=== PATIENT | female | born 1945 | race Caucasian/White ===

== ENCOUNTER 2022-02-10 21:52 | Emergency (ER) | payer MEDICARE, OTHER ==
[~2022-02-10] VITALS: Ht 170.2 cm; Wt 109.1 kg
[~2022-02-10 21:52] MED LIST: APIX5TAB3 PO; ATOR40TA72 PO; CARV6.253 PO; CLOP75TA34 PO; DILT180C66 PO; FURO40TA4 PO; LOSA25TA41 PO; METF500T3 PO; NITR0.4T48 SL; POTA-207 PO; PRED20TA PO; ZOLP6.2539 PO
--- NOTE | 2022-02-10 22:59 | NUR ---
INFORMED MD THAT PT. IS ON BLOOD THINNERS.
[2022-02-10] MEDS ORDERED: celeCOXIB 100mg capsule PO ONE (23:25)
[2022-02-10] MEDS ORDERED: cephalexin 500mg capsule PO ONE (23:25)
[2022-02-10] MEDS ORDERED: TETanus/Pertussis (Acell)/Diphther VAC/PF (Tdap-Adult) 0.5ml syringe IMVAC ONE (23:25)
[2022-02-11] MEDS ORDERED: CEPH-585 PO (00:44)
[2022-02-11 01:03] VITALS: BP 130/63
== END 2022-02-11 01:09 | disposition home or self-care (01) ==
LOC: ER 21:53
DX: S80.11XA Contusion of right lower leg, initial encounter (principal); S50.311A Abrasion of right elbow, initial encounter; E11.9 Type 2 diabetes mellitus without complications; I48.0 Paroxysmal atrial fibrillation; I25.10 Atherosclerotic heart disease of native coronary artery without angina pectoris; E78.00 Pure hypercholesterolemia, unspecified; I10 Essential (primary) hypertension; J43.9 Emphysema, unspecified; Z90.49 Acquired absence of other specified parts of digestive tract; Z95.5 Presence of coronary angioplasty implant and graft; Z88.2 Allergy status to sulfonamides; Z88.0 Allergy status to penicillin; Z88.5 Allergy status to narcotic agent; Z88.8 Allergy status to other drugs, medicaments and biological substances; Z79.2 Long term (current) use of antibiotics; Z79.899 Other long term (current) drug therapy; W18.09XA Striking against other object with subsequent fall, initial encounter; Z91.81 History of falling; Y93.89 Activity, other specified; Y92.89 Other specified places as the place of occurrence of the external cause; Y99.8 Other external cause status
CPT/HCPCS: 73080; 73564; 73610; 90471; 90715; 99284

== ENCOUNTER 2022-03-02 02:23 | Inpatient (IN) | payer MEDICARE, OTHER ==
[~2022-03-02] VITALS: Ht 170.2 cm; Wt 119.0 kg
[~2022-03-02 02:23] MED LIST changes: +CEPH-585 PO
[2022-03-02] MEDS ORDERED: albuterol 2.5 MG/3 ML nebule NEB ONE (02:35)
[2022-03-02 02:45] LABS: ABG BASE EXCESS 1.2 mmol/L (-2.0-2.0); ABG HCO3 27.1 mmol/L (22.0-26.0); ABG OXYGEN SATURATION 97.8 % (94-97); ABG PCO2 (T) 47.1 mmHg (32.0-45.0); ABG PO2 (T) 98.3 mmHg (75.0-100.0); ALLEN'S TEST POSITIVE; FCOHb 1.9 % (0.0-3.9); FLOW 6 L/min; FMetHb 0.1 % (0.0-1.5); FO2Hb 95.8 % (94-97); PATIENT TEMPERATURE 36.6; TOTAL HEMOGLOBIN 13.4 G/dl (12.0-16.0)
[2022-03-02 03:13] LABS: BASOPHILS # (AUTO) 0.2 X10'3 (0-0.2); BASOPHILS % (AUTO) 1.3 % (0-1); EOSINOPHILS # (AUTO) 0.4 X10'3 (0-0.9); EOSINOPHILS % (AUTO) 2.2 % (0-6); LYMPHOCYTES # (AUTO) 2.5 X10'3 (1.1-4.8); LYMPHOCYTES % (AUTO) 15.4 % (21-51); MEAN CORPUSCULAR HEMOGLOBIN 26.6 PG (27.0-31.0); MEAN CORPUSCULAR HGB CONC 30.9 g/dL (33.0-36.5); MEAN PLATELET VOLUME 8.6 FL (7.4-10.4); MONOCYTES # (AUTO) 1.2 X10'3 (0-0.9); MONOCYTES % (AUTO) 7.6 % (2-12); NEUTROPHILS % (AUTO) 73.5 % (42-75); PLATELET COUNT 404 X10'3 (140-440); RED BLOOD COUNT 4.53 X10'6 (4.20-5.60); RED CELL DISTRIBUTION WIDTH 16.2 % (11.5-14.5); WHITE BLOOD COUNT 16.3 X10'3 (4.5-11.0)
[2022-03-02 03:17] LABS: ALANINE AMINOTRANSFERASE 36 U/L (12-78); ALBUMIN 3.4 G/DL (3.4-5.0); ALBUMIN/GLOBULIN RATIO 0.9 (1.1-1.5); ALKALINE PHOSPHATASE 102 IU/L (46-116); ANION GAP 10 (8-16); ASPARTATE AMINO TRANSFERASE 29 U/L (10-37); BILIRUBIN,TOTAL 0.6 MG/DL (0.1-1.0); BLOOD UREA NITROGEN 14 MG/DL (7-18); BUN/CREATININE RATIO 24.1 (6.6-38.0); CALCIUM 9.6 MG/DL (8.5-10.1); CHLORIDE 104 MMOL/L (99-107); CREATININE 0.58 MG/DL (0.40-0.90); GLUCOSE 191 MG/DL (70-104); POTASSIUM 3.7 MMOL/L (3.5-5.1); SODIUM 144 MMOL/L (135-145); TOTAL CARBON DIOXIDE 29.6 MMOL/L (24-32); TOTAL PROTEIN 7.1 G/DL (6.4-8.2); eGFR > 90 ML/MIN
[2022-03-02] MEDS ORDERED: levoFLOXACIN-Levaquin 750MG/D5 150 ML IV STA (03:45)
[2022-03-02] MEDS ORDERED: dexamethasone sod phosphate 10mg/ml inj IV STA (03:49)
--- NOTE | 2022-03-02 06:30 | NUR ---
FIRST CONTACT WITH PT, FOUND HIGH FOWLERS IN BED WITH NC OUT OF NOSE. PT STATES THE O2 IS TOO HIGH AND MAKING HER NOSE RAW. 02 ON RA 94%, PT SOB WITH EXERTION. O2 DECREASED TO 2L, PLACED BACK IN PT NOSE. UPDATED PT ON POC AND ROOM STATUS. WOULD LIKE TO WAIT TO CHANGE INTO HOSPITAL GOWN UNTIL SHE GETS A ROOM.
--- NOTE | 2022-03-02 08:00 | NUR ---
BREAKFAST TRAY PROVIDED. [facility] PROVIDED D/T OLD ONE FALLING ON FLOOR.
[2022-03-02] MEDS ORDERED: magnesium 2GM in 50ml NS 50 ML IV PRN (08:10)
[2022-03-02] MEDS ORDERED: acetaminophen 325mg tablet PO PRN (08:10)
[2022-03-02] MEDS ORDERED: ondansetron 4mg rapidly disintigrating tab PO PRN (08:10)
[2022-03-02] MEDS ORDERED: magnesium 4gm in 100ml NS 100 ML IV PRN (08:10)
[2022-03-02] MEDS ORDERED: ondansetron/PF 4mg/2ml inj IV PRN (08:10)
[2022-03-02] MEDS ORDERED: PERFLUTREN PROTEIN-A MICROSPHR (Optison) 0.22 MG/ML 3ML VIAL IV ONE (08:10)
[2022-03-02] MEDS ORDERED: potassium CL 10mEq/100ml bag 100 ML IV PRN (08:10)
[2022-03-02] MEDS ORDERED: ipratropium/albuterol 3ml nebule NEB PRN ×2 (08:10)
[2022-03-02] MEDS ORDERED: magnesium Cl slow-release 64mg tablet PO PRN (08:10)
[2022-03-02] MEDS ORDERED: POTASSIUM BICARB 20meq eff tab 20 MEQ TABLET.EFF PO PRN ×2 (08:10)
--- NOTE | 2022-03-02 11:00 | NUR ---
UP TO BSC INDEPENDENTLY.
[2022-03-02 11:06] LABS: MAGNESIUM 1.7 MG/DL (1.5-2.4); POTASSIUM 3.7 MMOL/L (3.5-5.1)
--- NOTE | 2022-03-02 12:22 | NUR ---
LUNCH TRAY PROVIDED, TOLERATING WELL.
--- NOTE | 2022-03-02 12:32 | NUR ---
dr. rodrigez at bedside.
[2022-03-02] MEDS ORDERED: TRAM50TA2 PO (12:36)
--- NOTE | 2022-03-02 12:50 | NUR ---
paged dr. rodrigez regarding med rec.
--- NOTE | 2022-03-02 15:15 | NUR ---
paged dr. rodrigez regarding pt med rec. awaiting call back.
--- NOTE | 2022-03-02 17:21 | NUR ---
PAGED DR. BLAIR A THIRD TIME REGARDING PT MED REC. AWAITING CALL BACK.
[2022-03-02] MEDS: acetaminophen 325mg tablet PO PRN (18:22)
--- NOTE | 2022-03-02 18:28 | NUR ---
BEDSIDE REPORT TO SHWETA MULLER
[2022-03-02] MEDS: docusate sod 100mg capsule PO SCH (19:35)
[2022-03-02] MEDS: K and/or MAG REPLACEMENT MC SCH (19:35)
[2022-03-02] MEDS ORDERED: heparin, porcine 5000 units/ml vial SQ SCH (20:00)
[2022-03-02] MEDS ORDERED: traMADol 50MG tablet PO ONE (20:00)
[2022-03-02] MEDS ORDERED: glucagon, human recombinant 1mg kit SUBCUT PRN (20:20)
[2022-03-02] MEDS ORDERED: dextrose 50%-water 50ml dispensing syringe IV PRN ×2 (20:20)
[2022-03-02] MEDS ORDERED: MESSAGE TO PHARMACY PO ONE (20:20)
[2022-03-02] MEDS ORDERED: DEXTROSE 15 GM of carb/4 tabs (each vial/BOTTLE has 4 tablets) PO PRN ×2 (20:20)
[2022-03-02 20:36] LABS: HEMOGLOBIN A1C 7.4 % (4.5-6.2)
[2022-03-02] MEDS: carvedilol 6.25mg tablet PO SCH (20:45)
[2022-03-02] MEDS: diltiazem CD 180mg cap (once-daily) PO SCH (20:45)
[2022-03-02] MEDS: clopidogrel 75mg tablet PO SCH (20:45)
[2022-03-02] MEDS: losartan 25mg tablet PO SCH (20:52)
[2022-03-02 22:45] VITALS: BP 148/65
--- NOTE | 2022-03-02 22:51 | NUR ---
pt arrived on the unit from the ED. Report received from ED RN. Vital signs stable. Tele monitor on. 2 RN skin check performed.
[2022-03-02] MEDS: insulin glargine (Lantus) pen - multi-dose SQ SCH (23:17)
[2022-03-03] MEDS: zolpidem 5mg tablet PO PRN ×2 (01:41→22:54)
[2022-03-03 02:00] VITALS: BP 133/67
--- NOTE | 2022-03-03 06:22 | NUR ---
CHANGE OF SHIFT REPORT GIVEN TO SHWETA DE ANDA. ISSUES REPRIORITIZED. PATIENT STABLE. NO ACUTE COMPLAINTS
[2022-03-03 06:27] LABS: BASOPHILS # (AUTO) 0.1 X10'3 (0-0.2); BASOPHILS % (AUTO) 0.9 % (0-1); EOSINOPHILS % (AUTO) 0 % (0-6); HEMATOCRIT 37.4 % (35.0-45.0); HEMOGLOBIN 11.8 g/dl (12.0-16.0); LYMPHOCYTES # (AUTO) 1.5 X10'3 (1.1-4.8); LYMPHOCYTES % (AUTO) 11.8 % (21-51); MEAN CORPUSCULAR HEMOGLOBIN 26.5 PG (27.0-31.0); MEAN CORPUSCULAR HGB CONC 31.4 g/dL (33.0-36.5); MEAN CORPUSCULAR VOLUME 84.5 FL (78-98); MEAN PLATELET VOLUME 8.6 FL (7.4-10.4); MONOCYTES # (AUTO) 1.1 X10'3 (0-0.9); MONOCYTES % (AUTO) 8.3 % (2-12); NEUTROPHILS # (AUTO) 10.3 X10'3 (1.8-7.7); PLATELET COUNT 397 X10'3 (140-440); RED BLOOD COUNT 4.43 X10'6 (4.20-5.60); RED CELL DISTRIBUTION WIDTH 16.3 % (11.5-14.5)
[2022-03-03 06:28] LABS: ALBUMIN 3.2 G/DL (3.4-5.0); ANION GAP 8 (8-16); BLOOD UREA NITROGEN 12 MG/DL (7-18); BUN/CREATININE RATIO 26.7 (6.6-38.0); CHLORIDE 105 MMOL/L (99-107); CREATININE 0.45 MG/DL (0.40-0.90); GLUCOSE 173 MG/DL (70-104); MAGNESIUM 1.9 MG/DL (1.5-2.4); POTASSIUM 3.7 MMOL/L (3.5-5.1); SODIUM 143 MMOL/L (135-145); TOTAL CARBON DIOXIDE 30.3 MMOL/L (24-32); eGFR > 90 ML/MIN
[2022-03-03] MEDS: carvedilol 6.25mg tablet PO SCH ×2 (07:30→17:16)
[2022-03-03] MEDS: diltiazem CD 180mg cap (once-daily) PO SCH (08:00)
[2022-03-03] MEDS: K and/or MAG REPLACEMENT MC SCH ×2 (08:00→18:46)
[2022-03-03] MEDS: clopidogrel 75mg tablet PO SCH (08:00)
[2022-03-03] MEDS: atorvastatin 20mg tablet PO SCH (08:00)
[2022-03-03] MEDS: losartan 25mg tablet PO SCH (08:00)
[2022-03-03] MEDS: apixaban 5mg tablet PO SCH ×2 (08:00→19:51)
[2022-03-03] MEDS ORDERED: furosemide 40mg tablet PO SCH (08:00)
[2022-03-03] MEDS: docusate sod 100mg capsule PO SCH ×2 (08:00→19:52)
[2022-03-03] MEDS ORDERED: PERFLUTREN PROTEIN-A MICROSPHR (Optison) 0.22 MG/ML 3ML VIAL IV ONE (08:50)
--- NOTE | 2022-03-03 09:49 | NUR ---
Diabetes consult: Noted pt w/ hx of DM A1c 7.4. Written DM ed w/ RD contact info placed in pt chart Addendum: 03/03/22 at [address] Amended: Links added.
[2022-03-03] MEDS: insulin Lispro (HumaLOG) vial - multi-dose SQ SCH ×2 (14:41→18:49)
[2022-03-03] MEDS: levoFLOXACIN-Levaquin 500mg/D5 100 ML IV SCH (17:16)
[2022-03-03 18:00] VITALS: BP 132/54
[2022-03-03] MEDS: furosemide 40mg/4ml inj IV SCH (19:51)
[2022-03-03] MEDS: insulin glargine (Lantus) pen - multi-dose SQ SCH (20:01)
[2022-03-03 22:00] VITALS: BP 139/64
[2022-03-03] MEDS: acetaminophen 325mg tablet PO PRN (22:57)
[2022-03-04 02:00] VITALS: BP 115/58
[2022-03-04 06:00] VITALS: BP 114/61
--- NOTE | 2022-03-04 06:07 | NUR ---
Problems reprioritized. Patient report given, questions answered & plan of care reviewed with SHWETA Coon.
[2022-03-04 06:32] LABS: BASOPHILS # (AUTO) 0.1 X10'3 (0-0.2); BASOPHILS % (AUTO) 0.9 % (0-1); EOSINOPHILS # (AUTO) 0.1 X10'3 (0-0.9); EOSINOPHILS % (AUTO) 1.3 % (0-6); HEMATOCRIT 39.9 % (35.0-45.0); HEMOGLOBIN 12.8 g/dl (12.0-16.0); LYMPHOCYTES # (AUTO) 3.1 X10'3 (1.1-4.8); LYMPHOCYTES % (AUTO) 26.8 % (21-51); MEAN CORPUSCULAR HEMOGLOBIN 27.3 PG (27.0-31.0); MEAN CORPUSCULAR VOLUME 85.5 FL (78-98); MEAN PLATELET VOLUME 8.5 FL (7.4-10.4); MONOCYTES # (AUTO) 1.2 X10'3 (0-0.9); MONOCYTES % (AUTO) 10.3 % (2-12); NEUTROPHILS # (AUTO) 6.9 X10'3 (1.8-7.7); NEUTROPHILS % (AUTO) 60.7 % (42-75); PLATELET COUNT 406 X10'3 (140-440); RED BLOOD COUNT 4.67 X10'6 (4.20-5.60); RED CELL DISTRIBUTION WIDTH 16.4 % (11.5-14.5); WHITE BLOOD COUNT 11.4 X10'3 (4.5-11.0)
[2022-03-04 07:02] LABS: ALBUMIN 3.5 G/DL (3.4-5.0); ANION GAP 9 (8-16); BLOOD UREA NITROGEN 18 MG/DL (7-18); BUN/CREATININE RATIO 28.1 (6.6-38.0); CALCIUM 9.2 MG/DL (8.5-10.1); CHLORIDE 104 MMOL/L (99-107); CREATININE 0.64 MG/DL (0.40-0.90); GLUCOSE 135 MG/DL (70-104); POTASSIUM 3.4 MMOL/L (3.5-5.1); SODIUM 145 MMOL/L (135-145); TOTAL CARBON DIOXIDE 31.9 MMOL/L (24-32); eGFR 90 ML/MIN
[2022-03-04] MEDS: atorvastatin 20mg tablet PO SCH (07:37)
[2022-03-04] MEDS: carvedilol 6.25mg tablet PO SCH (07:37)
[2022-03-04 07:38] VITALS: BP_SYST 114
[2022-03-04] MEDS: diltiazem CD 180mg cap (once-daily) PO SCH (07:38)
[2022-03-04] MEDS: clopidogrel 75mg tablet PO SCH (07:38)
[2022-03-04] MEDS: losartan 25mg tablet PO SCH (07:38)
[2022-03-04] MEDS: apixaban 5mg tablet PO SCH (07:38)
[2022-03-04] MEDS: furosemide 40mg/4ml inj IV SCH (07:38)
[2022-03-04] MEDS: docusate sod 100mg capsule PO SCH (07:38)
[2022-03-04] MEDS: K and/or MAG REPLACEMENT MC SCH (08:00)
[2022-03-04] MEDS ORDERED: LEVO500T90 PO (08:57)
[2022-03-04] MEDS ORDERED: IPRA3AMP9 NEB (08:57)
[2022-03-04] MEDS ORDERED: pneumococcal 23-VAL P-sac vacc 25 mcg/0.5ml vial IMVAC ONE (10:00)
[2022-03-04] MEDS: levoFLOXACIN-Levaquin 500mg/D5 100 ML IV SCH (10:20)
--- NOTE | 2022-03-06 14:44 | NUR ---
Case Management DC follow up : Spoke with patient via telephone .S/P:Patient Reports: Denies chest pain,sob,nausea.Verbalizes she is managing her 1.5 liter fluid restrictions ; swelling in her leg is much better, denies fever, chills.Wound clinic consult was not there for appointment;however, rescheduled appointment for 03/12/22 at 1015.Verbalized has scheduled follow up appointment with PCP.Verbalizes compliance with aftercare.Verbalizes understanding of s/s that warrant 911/ER visit for further evaluation.Verbalized understanding of new Rx: why prescribed;continues/resumes current Rx as ordered.Verbalizes everyone was great:Nursing, Resp therapist,everyone ,except the physician assigned to her care . Starting with first encounter with Physician in ER telling patient she did not have pneumonia, because she was not even wearing an oxygen cannula,then asked patient a question ,before Patient could answer,Physician looked at her watch and stated she had a meeting, but she would be right back.Patient verbalized she did not see the physician until the next day; this example of interaction continued throughout her stay in the hospital. Addendum: 03/06/22 at 1621 by Mae West RN Needs met,questions/concerns addressed with nurse at DC.No further questions/concerns regarding recent hospital stay and or DC status.
== END 2022-03-04 12:19 | disposition home or self-care (01) | DRG 871 ==
LOC: ER 02:23 → ED HOLD 08:12 → PCU 3S 22:30
PROVIDERS: ADMIT Internal Medicine; ATTEND Internal Medicine
PROC: 3E0234Z Introduction of Serum, Toxoid and Vaccine into Muscle, Percutaneous Approach (ICD-10-PCS; principal; 2022-03-04)
DX: A41.9 Sepsis, unspecified organism (principal); I50.23 Acute on chronic systolic (congestive) heart failure; J96.10 Chronic respiratory failure, unspecified whether with hypoxia or hypercapnia; L03.115 Cellulitis of right lower limb; I48.20 Chronic atrial fibrillation, unspecified; I11.0 Hypertensive heart disease with heart failure; E78.5 Hyperlipidemia, unspecified; E11.9 Type 2 diabetes mellitus without complications; E78.00 Pure hypercholesterolemia, unspecified; G89.29 Other chronic pain; Z96.653 Presence of artificial knee joint, bilateral; S80.811A Abrasion, right lower leg, initial encounter; W18.39XA Other fall on same level, initial encounter; M54.9 Dorsalgia, unspecified; I25.10 Atherosclerotic heart disease of native coronary artery without angina pectoris; M54.50 Low back pain, unspecified; J43.9 Emphysema, unspecified; I25.2 Old myocardial infarction; Z79.02 Long term (current) use of antithrombotics/antiplatelets; Z79.84 Long term (current) use of oral hypoglycemic drugs; Z87.891 Personal history of nicotine dependence; Z23 Encounter for immunization; Z88.0 Allergy status to penicillin; Z88.2 Allergy status to sulfonamides; Z88.5 Allergy status to narcotic agent; Y93.89 Activity, other specified; Y92.59 Other trade areas as the place of occurrence of the external cause; Y99.8 Other external cause status; Z79.899 Other long term (current) drug therapy
CPT/HCPCS: 36415; 36600; 71045; 73590; 80048; 80053; 82803; 82948; 83036; 83605; 83735; 83880; 84132; 84484; 85018; 85025; 87040; 87081; 90732; 93306; 93971; 94640; 94760; 97116; 97161; 97530; 99285; G0378; J1100; J1644; J1815; J1940; J1956

== ENCOUNTER 2022-11-15 21:43 | Emergency (ER) | payer MEDICARE, OTHER ==
[~2022-11-15] VITALS: Ht 170.2 cm; Wt 97.0 kg
[~2022-11-15 21:43] MED LIST changes: -CEPH-585 PO; -DILT180C66 PO; +DILT180C89 PO; +FLUT1BLS4 INH; -LOSA25TA41 PO; -METF500T3 PO; -NITR0.4T48 SL; +NITR0.4T51 SL; +PANT40TA54 PO; -PRED20TA PO; +TRAM50TA2 PO
[2022-11-15 22:02] VITALS: BP 135/65
[2022-11-15] MEDS ORDERED: DOXYCYCLINE 100MG CAPSULE PO STA (23:21)
[2022-11-15] MEDS ORDERED: DOXY100C76 PO (23:24)
[2022-11-15] MEDS ORDERED: CEPH-585 PO (23:24)
[2022-11-15] MEDS ORDERED: HYDR-3965 PO (23:24)
[2022-11-15] MEDS ORDERED: cephalexin 250mg capsule PO ONE (23:25)
[2022-11-15] MEDS ORDERED: HYDROcodone/acetaminophen 10/325mg tab PO ONE (23:30)
== END 2022-11-15 23:54 | disposition home or self-care (01) ==
LOC: ER 21:43
DX: L03.011 Cellulitis of right finger (principal); I11.9 Hypertensive heart disease without heart failure; J44.9 Chronic obstructive pulmonary disease, unspecified; J43.9 Emphysema, unspecified; E11.9 Type 2 diabetes mellitus without complications; Z88.0 Allergy status to penicillin; Z88.2 Allergy status to sulfonamides; Z79.899 Other long term (current) drug therapy; Z88.5 Allergy status to narcotic agent; Z88.8 Allergy status to other drugs, medicaments and biological substances
CPT/HCPCS: 99284

== ENCOUNTER 2024-01-14 00:55 | Emergency (ER) | payer MEDICARE, OTHER ==
[~2024-01-14] VITALS: Ht 170.2 cm; Wt 104.5 kg
[2024-01-14 01:21] VITALS: BP 119/58; PULSE 86; RESP 17; TEMP 98; O2SAT 92
[2024-01-14] MEDS ORDERED: HYDR-3965 PO (02:41)
== END 2024-01-14 02:49 | disposition home or self-care (01) ==
LOC: ER 00:56
DX: S80.11XA Contusion of right lower leg, initial encounter (principal); I25.10 Atherosclerotic heart disease of native coronary artery without angina pectoris; E78.00 Pure hypercholesterolemia, unspecified; I10 Essential (primary) hypertension; I25.2 Old myocardial infarction; J44.9 Chronic obstructive pulmonary disease, unspecified; E11.9 Type 2 diabetes mellitus without complications; M19.90 Unspecified osteoarthritis, unspecified site; Z90.49 Acquired absence of other specified parts of digestive tract; Z88.0 Allergy status to penicillin; Z88.2 Allergy status to sulfonamides; Z88.8 Allergy status to other drugs, medicaments and biological substances; X58.XXXA Exposure to other specified factors, initial encounter; Y93.89 Activity, other specified; Y92.89 Other specified places as the place of occurrence of the external cause; Y99.8 Other external cause status
CPT/HCPCS: 73590; 99283

== ENCOUNTER 2025-04-25 16:34 | Inpatient (IN) | payer MEDICARE, OTHER ==
[~2025-04-25] VITALS: Ht 170.2 cm; Wt 104.5 kg
[~2025-04-25 16:34] MED LIST changes: +ASPI-1071 PO; -CLOP75TA34 PO; -DILT180C89 PO; +DULO60CA61 PO; +FEXO-25 PO; +FLUT1BLS16 INH; -FLUT1BLS4 INH; +FURO-150 PO; -FURO40TA4 PO; +ICOS1CAP PO; +LEVO-65 PO; +LIRA0.6P SUBCUT; +MAGN250T29 PO; +MELA10TA2 PO; -NITR0.4T51 SL; +OSC500T PO; +PANT-47 PO; -PANT40TA54 PO; +SACU1TAB PO; -TRAM50TA2 PO; -ZOLP6.2539 PO; +ZOLP6.2547 PO
--- NOTE | 2025-04-25 17:34 | RADIOLOGY REPORT ---
Indication: KNEE PAIN LEFT Technique: DI KNEE, COMP 4 VW MINKNEE CMPT Comparison: None FINDINGS/IMPRESSION: No radiographic evidence for acute fracture or dislocation. Left knee arthroplasty in anatomic align ment. Small to moderate suprapatellar effusion. Enthesopathy at quadriceps insertion upon the lopez la. Osteopenia.
--- NOTE | 2025-04-25 19:47 | Physician Documentation ---
History of Present Illness ~ Chief Complaint: Mechanical Fall Stated Complaint: LT KNEE PAIN Time Seen by MD: 17:53 Primary Medical Doctor: Dr. Caro, PCP. Dr. Catalan, tawer HPI Patient is seen today with complaints of pain of her left knee after she took a fall from ground level and landed on her left knee Thursday which was about four or five days ago. 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 Patient admits to total knee arthroplasty on the left side back in 1993 and has no complications since. Patient denies any fevers or chills but states the pain in her left knee has been constant and significant and she has no other concern or complaint at this time. Tetanus within 5 Years?: Yes Medication Reconciliation Allergies: Coded Allergies: Penicillins (Unverified Allergy, Intermediate, HIVES, 04/25/25) Sulfa (Sulfonamide Antibiotics) (Unverified Allergy, Intermediate, HIVES, 04/25/25) droperidol (Unverified Allergy, Intermediate, MOOD CHANGE, 04/25/25) morphine (Verified Allergy, Intermediate, HIVES, 04/25/25) NSAIDS (Non-Steroidal Anti-Inflamma (Verified Allergy, Unknown, 04/25/25) Uncoded Allergies: NSAID (Allergy, Mild, BLEEDING- PT ON BLOOD THINNERS, 04/19/24) Scheduled Apixaban (Eliquis), 1 TAB PO Q12H, (Reported) Aspirin (Ecotrin*), 81 TAB PO DAILY, (Reported) Atorvastatin Calcium (Atorvastatin Calcium), 1 TAB PO DAILY, (Reported) Calcium Carbonate* (Oscal*), 2 TAB PO DAILY, (Reported) Carvedilol (Carvedilol), 1 TAB PO BID, (Reported) Duloxetine HCl (Cymbalta), 1 CAP PO DAILY, (Reported) Fexofenadine Hcl (Nakia Allergy), 3 TAB PO DAILY, (Reported) Fluticasone/Umeclidin/Vilanter (Trelegy Ellipta 200-62.5-25), 1 PUFFS INH DAILY, (Reported) Icosapent Ethyl (Vascepa), 2 CAP PO Q12H, (Reported) Liraglutide (Victoza), 1.2 MG SUBCUT DAILY, (Reported) Magnesium Oxide (Magnesium), 2 TAB PO DAILY, (Reported) Melatonin (Melatonin), 1 TAB PO HS, (Reported) Pantoprazole Sodium (PROTONIX tablet), 1 TAB PO DAILY, (Reported) Sacubitril/Valsartan (Entresto 24 mg-26 mg Tablet), 2 TAB PO DAILY, (Reported) Spironolactone (Spironolactone), 2.5 TAB PO DAILY, (Reported) Scheduled PRN Furosemide* (Lasix*), 2 TAB PO BID PRN for SOB or wheezing, (Reported) Tramadol HCl (Tramadol HCl), 1 TAB PO Q12H PRN PRN for pain, (Reported) Zolpidem Tartrate (Zolpidem Tartrate), 1 TAB PO HSPRN PRN for sleep, (Reported) Discontinued Medications Levofloxacin (Levofloxacin), 500 MG PO Q24H@11 Discontinued Reason: patient no longer taking Potassium Chloride* (K-Dur*), 1 TAB PO DAILY, (Reported) Discontinued Reason: patient no longer taking Tramadol HCl (Tramadol HCl), 1 TAB PO Q12H PRN PRN for pain, (Reported) Discontinued Reason: patient no longer taking Zolpidem Tartrate (Zolpidem Tartrate), 1 TAB PO HS PRN for insomnia, (Reported) Discontinued Reason: patient no longer taking Past Medical History Past Medical History: Atrial Fibrillation, Coronary Artery Disease, High Cholesterol, Hypertension, Myocardial Infarction, COPD, Emphysema, Pneumonia, GI Bleed, Pancreatitis, Diabetes, Arthritis Past Surgical History: angioplasty, cholecystectomy, orthopedic surgeries Patient History: FH: CHF (congestive heart failure) Reviewed and is not pertinent, Name: FATHER, , Age: 77 FH: dementia MOTHER, , Age: 98 FH: lymphoma MOTHER, , Age: 98 Alcohol Use: None Drug Use: none Lives with: Spouse Lives In: Home Occupation: retired Physical Exam Vital Signs: Temperature: 98.1, Source: Temporal, Heart Rate: 84, Respiratory Rate: 18, BP: 123/60, Pulse Oximetry: 97, Weight: 104.550 Physical Exam General: Awake and Alert, no acute distress. HEENT: Conjunctiva pink, Sclera clear, Mucus Membranes moist. Neck: Supple without masses and tenderness. Resp: Unlabored. Lungs clear to auscultation bilaterally. Heart: Regular Rate and rhythm, normal S1 and S2 without murmur, rub or gallop. Musculoskeletal: Patient on exam has erythema and swelling and warmth of the left knee. Patient has postsurgical changes with scar of anterior knee that is well healed from previous total knee arthroplasty left side. Patient is neurovascularly intact distally. Patient is decreased range of motion of the left knee due to pain and swelling. Extremities: No cyanosis,clubbing or edema. Skin: Warm and Dry. Progress Results/Orders Results/Orders Orders - SHANITA PAN Saline Lock (04/25/25 ) Page Hospitalist (04/25/25 21:05) Fill Out Med Reconciliation (04/25/25 21:05) Completed Orders - SHANITA PAN PAC Hydrocodone/Apap 10/325 (Herman 10/325mg (04/25/25 19:29) Clindamycin Capsule (Cleocin Capsule) (04/25/25 19:29) Cbc/Diff (04/25/25 19:53) BMP (04/25/25 19:53) C-Reactive Protein (04/25/25 19:53) ESR (04/25/25 19:53) Hgb A1c (04/25/25 20:06) PBNP (04/25/25 20:06) Medications Received in ER Medications (Trade) Dose Ordered Sig/Cate Route PRN Reason Start Time Stop Time Status Last Admin Dose Admin (Herman 10/325mg tab) 1 tab ONCE STAT PO 04/25/25 19:29 04/25/25 19:48 DC 04/25/25 19:52 1 TAB Sodium Chloride 1,000 ml @ 100 mls/hr Q10H IV 04/25/25 22:15 04/25/25 23:20 100 MLS/HR Ceftriaxone Sodium 50 ml @ 100 mls/hr DAILY IV 04/25/25 22:15 04/25/25 23:21 100 MLS/HR Vital Signs 04/25/25 16:57 Temp 98.1 Pulse 84 Resp 18 B/P (MAP) 123/60 Pulse Ox 97 Laboratory Tests Test 04/25/25 20:06 White Blood Count 11.9 H Red Blood Count 4.56 Hemoglobin 12.4 Hematocrit 38.9 Mean Corpuscular Volume 85.3 Mean Corpuscular Hemoglobin 27.2 Mean Corpuscular Hemoglobin Concent 31.8 L Red Cell Distribution Width 16.1 H Platelet Count 421 Mean Platelet Volume 7.7 Neutrophils (%) (Auto) 62.8 Lymphocytes (%) (Auto) 23.8 Monocytes (%) (Auto) 9.1 Eosinophils (%) (Auto) 3.1 Basophils (%) (Auto) 1.2 H Neutrophils # (Auto) 7.4 Lymphocytes # (Auto) 2.8 Monocytes # (Auto) 1.1 H Eosinophils # (Auto) 0.4 Basophils # (Auto) 0.1 CBC Comment Erythrocyte Sedimentation Rate 29 Prothrombin Time 10.3 INR International Normalized Ratio 1.0 Activated Partial Thromboplast Time 27 Coagulation Comments Sodium Level 136 Potassium Level 4.2 Chloride Level 101 Carbon Dioxide Level 27.5 Anion Gap 8 Blood Urea Nitrogen 13 Creatinine 0.49 Estimated GFR/1.73 m2 > 90 BUN/Creatinine Ratio 26.5 H Glucose Level 105 H Hemoglobin A1c 6.3 H Calcium Level 8.8 C-Reactive Protein 0.95 H Pro-B-Type Natriuretic Peptide 314 Albumin 3.4 Chemistry Comments EKG/XRAY/CT/US/VASC/MRI Bone/Soft Tissue X-Ray (Ext.) : Additional Comment X-ray of the left knee interpreted by myself today shows no sign of acute fracture, orthopedic hardware in place, joint in anatomic alignment. DIAGNOSTIC RADIOLOGY Patient: PAUL YORK Medical Record: [id number] [facility] : 1945, Age: 79 Sex: Female Location: ER Patient Status: REG ER Service Date/Time: 04/25/251713 Ordering Physician: MARISOL THOMAS HAND BRUSH FILLER Exam: KNEE, COMP 4 VW MIN Indication: KNEE PAIN LEFT Technique: DI KNEE, COMP 4 VW MINKNEE CMPT Comparison: None FINDINGS/IMPRESSION: No radiographic evidence for acute fracture or dislocation. Left knee arthroplasty in anatomic alignment. Small to moderate suprapatellar effusion. Enthesopathy at quadriceps insertion upon the patella. Osteopenia. Electronically Signed by:ENRICO CARLSON MD Date & Time: 04/25/251732 Dictated by: ENRICO CARLSON MD Dictation date and time: 04/25/251732 Primary Care Provider: NO PRIMARY CARE PROVIDER cc: MARISOL THOMAS HAND BRUSH FILLER ~ Medical Decision Making Findings Patient is seen today with complaints of pain of her left knee after she took a fall from ground level and landed on her left knee Thursday which was about four or five days ago. 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 Patient admits to total knee arthroplasty on the left side back in 1993 and has no complications since. Patient denies any fevers or chills but states the pain in her left knee has been constant and significant and she has no other concern or complaint at this time. I did consult with Dr. Aleman the orthopedic surgeon on-call who agreed to see patient tomorrow. Patient will be admitted to the hospitalist and hospitalist consulted and started on antibiotics IV. Arthrocentesis of the left knee was attempted with very minimal blood being drawn out. And no purulent drainage. Patient was given a Herman 10 in the ED tonight. Departure Disposition: ADMITTED INPATIENT Admitted to Inpatient Unit: to hospitalist Admission Level of Care: Med/Surg Impression: Primary Impression: Septic arthritis of knee, left Qualified Codes: M00.9 - Pyogenic arthritis, unspecified Condition: Stable Additional Instructions: I did consult with Dr. Aleman the orthopedic surgeon on-call who agreed to see patient tomorrow. Patient will be admitted to the hospitalist and hospitalist consulted and started on antibiotics IV. Arthrocentesis of the left knee was attempted with very minimal blood being drawn out. And no purulent drainage. Patient was given a Herman 10 in the ED tonight. Referrals: NO PRIMARY CARE PROVIDER (PCP) Signature Scribe Signature: No scribe Attestation: No scribe SHANITA PAN PAC Apr 25, 2025 19:47
[2025-04-25] MEDS: HYDROcodone/acetaminophen 10/325mg tab PO STA (19:52)
[2025-04-25 20:15] LABS: MEAN PLATELET VOLUME 7.7 FL (7.4-10.4); RED CELL DISTRIBUTION WIDTH 16.1 % (11.5-14.5)
[2025-04-25 20:30] LABS: CREATININE 0.49 MG/DL (0.40-0.90); TOTAL CARBON DIOXIDE 27.5 MMOL/L (24-32); eCRCL 92 ML/MIN; eGFR > 90 ML/MIN
[2025-04-25] MEDS ORDERED: magnesium Cl slow-release 64mg tablet PO PRN (22:15)
[2025-04-25] MEDS ORDERED: magnesium sulf-water 4G/100mL 100 ML IV PRN (22:15)
[2025-04-25] MEDS ORDERED: mag hydrox/Alum hydrox/simeth 30ml oral suspension PO PRN (22:15)
[2025-04-25] MEDS ORDERED: potassium Cl 20 mEq SR tablet PO PRN ×2 (22:15)
[2025-04-25] MEDS ORDERED: HYDROcodone/acetaminophen 10/325mg tab PO PRN (22:15)
[2025-04-25] MEDS ORDERED: potassium Cl 40MEQ/1/2NS 520ml 520 ML IV PRN (22:15)
[2025-04-25] MEDS ORDERED: HYDROmorphone inj. 0.5 MG/0.5 ML DISP.SYRIN IV PRN (22:15)
[2025-04-25] MEDS ORDERED: magnesium sulf-water 2g/50mL 50 ML IV PRN (22:15)
[2025-04-25] MEDS ORDERED: HYDROmorphone/PF 0.2 MG/ML SYRINGE IV PRN (22:15)
[2025-04-25 22:42] LABS: APTT 27 SECONDS (22-32); INR 1.0 INR
[2025-04-25 22:50] LABS: PRO BRAIN NATRIURETIC PEPTIDE 314 PG/ML (0-450)
[2025-04-25] MEDS: normal saline 1000ml 1,000 ML IV SCH (23:20)
[2025-04-25] MEDS: CefTRIAXone/D5W-Rocephin 1gm 50 ML IV SCH (23:21)
[2025-04-26] VITALS (11 sets, daily range): BP systolic 112–166; BP diastolic 42–74; PULSE 67–94; RESP 13–18; TEMP 97.4–97.8; O2SAT 92–97
[2025-04-26] MEDS ORDERED: ZOLP6.2547 PO
[2025-04-26] MEDS ORDERED: SPIR100T5 PO
[2025-04-26] MEDS ORDERED: TRAM50TA2 PO (00:01)
--- NOTE | 2025-04-26 02:13 | HISTORY AND PHYSICAL-Residence ---
History & Physical Providers to CC Resident Creating Document: OMKAR CHRIS, RES ~ History of Present Illness Primary Medical Doctor: Dr. Caro, PCP. Dr. Catalan, composing room supervisor Reason for Admit\Complaint: Left knee pain, redness History of Present Illness This is a 79-year-old female with a history of atrial fibrillation, CAD, hypertension, hyperlipidemia, COPD, emphysema, diabetes, arthritis presents to the ER with a chief complaint of pain and tenderness in the left knee. Patient endorses that she had a ground level fall landed on her left knee on Thursday about four days ago. She is on a blood thinner for her AFib and has propensity to bleed easily. Patient states that she had very significant swelling that improved progressively. Also the swelling improved she had warmth, tenderness to touch and redness around the left knee. Patient also has pain while she bends her knee. 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 She denies any fever, chills, difficulty walking or gait abnormalities. Patient underwent total knee arthroplasty of left knee 30 years ago. Allergies: Coded Allergies: Penicillins (Unverified Allergy, Intermediate, HIVES, 04/25/25) Sulfa (Sulfonamide Antibiotics) (Unverified Allergy, Intermediate, HIVES, 04/25/25) droperidol (Unverified Allergy, Intermediate, MOOD CHANGE, 04/25/25) morphine (Verified Allergy, Intermediate, HIVES, 04/25/25) NSAIDS (Non-Steroidal Anti-Inflamma (Verified Allergy, Unknown, 04/25/25) Uncoded Allergies: NSAID (Allergy, Mild, BLEEDING- PT ON BLOOD THINNERS, 04/19/24) Home Medications Home Medications Active Reported Tramadol HCl 50 Mg Tablet 1 Tab PO Q12H PRN PRN 30 Days Spironolactone 100 Mg Tablet 2.5 Tab PO DAILY 30 Days Zolpidem Tartrate 6.25 Mg Tab.mphase 1 Tab PO HSPRN PRN 30 Days Lasix* (Furosemide) 20 Mg Tablet 2 Tab PO BID PRN 30 Days PROTONIX tablet (Pantoprazole Sodium) 40 Mg Tablet.dr 1 Tab PO DAILY 30 Days Cymbalta (Duloxetine HCl) 60 Mg Capsule. 1 Cap PO DAILY 30 Days Ecotrin* (Aspirin) 81 Mg Tablet. 81 Tab PO DAILY 30 Days Nakia Allergy (Fexofenadine Hcl) 60 Mg Tablet 3 Tab PO DAILY 30 Days Vascepa (Icosapent Ethyl) 1 Gram Capsule 2 Cap PO Q12H 30 Days Magnesium (Magnesium Oxide) 250 Mg Tablet 2 Tab PO DAILY 30 Days Entresto 24 mg-26 mg Tablet (Sacubitril/Valsartan) 24 Mg-26 Mg Tablet 2 Tab PO DAILY 30 Days Oscal* (Calcium Carbonate) 500 Mg Tablet 2 Tab PO DAILY Trelegy Ellipta 200-62.5-25 (Fluticasone/Umeclidin/Vilanter) 200-62.5 Blst.w.dev 1 Puffs INH DAILY 30 Days Victoza (Liraglutide) 0.6 Mg/0.1 Ml (18 Mg/3 Ml) Pen.injctr 1.2 Mg SUBCUT DAILY 30 Days Melatonin 10 Mg Tablet 1 Tab PO HS 30 Days Eliquis (Apixaban) 5 Mg Tablet 1 Tab PO Q12H 30 Days Atorvastatin Calcium 40 Mg Tablet 1 Tab PO DAILY Carvedilol 6.25 Mg Tablet 1 Tab PO BID Past Medical History Past Medical History Atrial Fibrillation, Coronary Artery Disease, High Cholesterol, Hypertension, Myocardial Infarction, COPD, Emphysema, Pneumonia, GI Bleed, Pancreatitis, Diabetes, Arthritis Past Surgical History Surgical History Comment angioplasty, cholecystectomy, orthopedic surgeries Family History Family History: FH: CHF (congestive heart failure) Reviewed and is not pertinent, Name: FATHER, , Age: 77 FH: dementia MOTHER, , Age: 98 FH: lymphoma MOTHER, , Age: 98 Past Social History Social History Comment Smoked about 10-15 cigarettes per day but quit two years ago. Drinks alcohol occasionally, denies any drug use Alcohol Use: None Drug Use: None Lives with: Spouse Lives In: Home Occupation: retired ROS ROS Reviewed in full and negative except for the pertinent positives in HPI Exam Vitals: Vital Signs Date Time Temp Pulse Resp B/P (MAP) Pulse Ox O2 Delivery O2 Flow Rate FiO2 04/25/25 23:46 16 04/25/25 23:29 70 92 0 04/25/25 16:57 98.1 General: General: Awake and Alert, no acute distress. HEENT: Conjunctiva pink, Sclera clear, Mucus Membranes moist. Neck: Supple without masses and tenderness. Resp: Unlabored. Lungs clear to auscultation bilaterally. Heart: Regular Rate and rhythm, normal S1 and S2 without murmur, rub or gallop. Musculoskeletal: Patient on exam has erythema and swelling and warmth of the left knee, significant asymmetric swelling and bruising around the knee. Patient has postsurgical changes with scar of anterior knee that is well healed from previous total knee arthroplasty left side. Patient is neurovascularly intact distally. Patient is decreased range of motion of the left knee due to pain and swelling. Extremities: No cyanosis,clubbing or edema. Skin: Warm and Dry. Diagnostic Data Last Recorded Lab Results: 04/25/25200504/25/252005 Diagnostic Data: Laboratory Tests Test 04/25/25 20:06 Prothrombin Time 10.3 SECONDS (9.0-12.0) INR International Normalized Ratio 1.0 INR Activated Partial Thromboplast Time 27 SECONDS (22-32) Coagulation Comments Advance Care Planning Advanced Care plannin - 30 Minutes (I spent a total of 17 minutes on reviewing various resuscitative measures/ ACP with the patient at the time of admission. The patient has decided on a full code status) Additional Plan Acute knee pain and tenderness secondary to trauma Small to Moderate Bloody prepatellar effusion Rule out septic arthritis Knee x-ray shows No radiographic evidence for acute fracture or dislocation. Left knee arthroplasty in anatomic alignment. Small to moderate suprapatellar effusion. Enthesopathy at quadriceps insertion upon the [place] [address], ESR 29, lactic acid 2.8, CRP 0.95. Started on IV vancomycin and Rocephin. Dr. Aleman was consulted who recommended inpatient admission, arthrocentesis and culture of synovial fluid. Arthrocentesis was done which got very minimal blood with no purulent drainage. Fluid was sent for analysis. Continue hydration with IV fluids at 100 mL/hour History of atrial fibrillation Continue home medication carvedilol 6.25 mg b.i.d. hold Eliquis for now given bloody effusion in the knee. History of CHF s/p stent in 2020 History of CAD History of ROBERT Continue home medication aspirin 81 mg, atorvastatin 40 mg, hold Lasix for now. Continue GDMT with Entresto, spironolactone, carvedilol She follows Dr. Cataaln outpatient. CPAP at night Code Status: Full code DVT Prophylaxis: Heparin Analgesia/Sedation: [place], morphine p.r.n. Lines/Tubes: PIV Gi Prophylaxis: None Nutrition: Regular diet PT: Yes Prognosis: Guarded Disposition: Admit to ortho floor. Pending orthopedic consultation and cultures Omkra Christine MD Internal Medicine Resident PGY-2 Patient evaluated using HIPPA compliant AV device Discussed with resident as outlined above Ashia Matt MD Date of Service: Apr 26, 2025 Billing Provider: ASHIA MATT MD,OMKAR CHRISTINE, RES Apr 26, 2025 02:13 ASHIA MATT MD Apr 26, 2025 03:32
[2025-04-26] MEDS ORDERED: FLUC200T93 PO (02:34)
[2025-04-26] MEDS: HYDROcodone/acetaminophen 5mg/325mg tablet PO PRN (02:37)
[2025-04-26 03:11] LABS: MEAN PLATELET VOLUME 8.2 FL (7.4-10.4); RED CELL DISTRIBUTION WIDTH 16.3 % (11.5-14.5)
[2025-04-26 03:23] LABS: CREATININE 0.57 MG/DL (0.40-0.90); TOTAL CARBON DIOXIDE 26.9 MMOL/L (24-32); eCRCL 79 ML/MIN; eGFR > 90 ML/MIN
[2025-04-26 03:24] LABS: CHOL/HDL RATIO 3.0 (0.00-4.99); LDL CHOLESTEROL 71 MG/DL (50-100)
[2025-04-26] MEDS: VANCOMYCIN 2GM/400ML H20 (PEG) 400 ML IV ONE ×2 (03:32→03:58)
[2025-04-26] MEDS ORDERED: ZOLPIDEM TARTRATE 6.25 MG PO PRN (05:50)
[2025-04-26] MEDS: duloxetine 30mg CAPSULE.DR PO SCH (07:52)
[2025-04-26] MEDS: docusate sod 100mg capsule PO SCH (07:54)
[2025-04-26] MEDS: calcium carbonate 500mg tablet PO SCH (07:54)
[2025-04-26] MEDS: aspirin 81mg, enteric-coated 1 TAB TABLET.DR PO SCH (07:55)
[2025-04-26] MEDS: carvedilol 6.25mg tablet PO SCH (07:57)
[2025-04-26] MEDS: heparin, porcine 5000 units/ml vial SQ SCH (07:58)
[2025-04-26] MEDS ORDERED: non-formulary drug (Magnesium Oxide (Magnesium) 2 TAB) PO SCH (08:00)
[2025-04-26] MEDS: sacubitril/valsartan 24mg-26mg tablet PO SCH ×2 (08:00→22:07)
[2025-04-26] MEDS: K and/or MAG REPLACEMENT MC SCH (08:00)
[2025-04-26] MEDS: ondansetron/PF 4mg/2ml inj IV PRN ×2 (09:55→12:52)
[2025-04-26] MEDS: magnesium hydroxide 30ml (MOM) UD suspension PO PRN (10:13)
[2025-04-26] MEDS: vancomycin/NS 1 GM ADD-VANTAGE 250 ML IV SCH (12:52)
[2025-04-26] MEDS ORDERED: VANCOMYCIN/H2O 1.5g/300mL PB 300 ML IV SCH (14:00)
[2025-04-26] MEDS ORDERED: iohexol 300mg/ml 100ml inj. ONE (15:06)
--- NOTE | 2025-04-26 16:09 | RADIOLOGY REPORT ---
EXAM: CT CT LOWER EXTREMITY W/ IV CONTRAST INDICATION: LEFT KNEE SWELLING , FALL; R/O SEPTIC ARTHRITIS EXAM DATE: 04/26/2025 03:16 PM COMPARISON: None TECHNIQUE: Multiple axial CT images of the left knee were obtained using bone algorithm. Axial and co mark reformatting was done. Bone and soft tissue windows were reviewed. IV contrast was administered . Radiation Dose Information: CT Dose: CTDI volume is 10.12 mGy. Dose-length product is 329.91 mGy*cm Findings/Impression: Significant beam hardening artifact from the left total knee arthroplasty which limits evaluation. There is no evidence of an acute fracture, dislocation, blastic, or lytic lesions. Small joint effusion with prepatellar edema. Cannot exclude a septic joint. Recommend a nuclear medicine WBC scan for further evaluation.
--- NOTE | 2025-04-26 19:23 | PROGRESS NOTE ---
Daily Progress Note Providers to CC ~ Antibiotic Timeout Antibiotic Ordered?: Yes Subjective Patient was seen in her room she is able to ambulate with the help of cane. According to her she had a fall after which she developed the hematoma over the left knee. Dr. 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 Objective Vital Signs Date Time Temp Pulse Resp B/P (MAP) Pulse Ox O2 Delivery O2 Flow Rate FiO2 04/26/25 12:10 80 16 92 Room Air* 0 21 04/26/25 10:00 97.6 112/52 (72) Result Diagram: 04/26/25 0250 04/26/25 0250 General-patient not in any acute distress, alert awake oriented, chronically ill-appearing , obese , looks comfortable. HEENT-atraumatic normocephalic, neck supple without elevated JVD, no thyromegaly or carotid bruit. No lymphadenopathy bilaterally. Eyes-no icterus or pallor seen in eyes Chest-clear to auscultation bilaterally, breathing nonlabored no tachypnea, no wheezing, no crepitation, no crackles. Heart-S1-S2 normal, regular heart rate no murmur Abdomen bowel sounds positive on auscultation, soft nondistended nontender no guarding, no rigidity Skin no active skin rash Neurology-grossly intact, nonfocal alert awake oriented Extremity- signs of small joint effusion and hematoma present over left knee, no pedal edema able to move all 4 extremities, walking with the help of cane Psychiatry - patient is not confused or agitated cooperated during physical examination Coagulation Studies Laboratory Tests Test 04/25/25 20:06 Prothrombin Time 10.3 SECONDS (9.0-12.0) INR International Normalized Ratio 1.0 INR Activated Partial Thromboplast Time 27 SECONDS (22-32) Coagulation Comments Problem\Assessment\Plan Acute knee pain and tenderness secondary to trauma Small to Moderate Bloody prepatellar effusion Rule out septic arthritis Knee x-ray shows No radiographic evidence for acute fracture or dislocation. Left knee arthroplasty in anatomic alignment. Small to moderate suprapatellar effusion. Enthesopathy at quadriceps insertion upon the patella. Osteopenia. continue on IV vancomycin and Rocephin. Dr. Aleman was consulted who recommended inpatient admission, arthrocentesis and culture of synovial fluid. Arthrocentesis was done which got very minimal blood with no purulent drainage. Fluid was sent for analysis as per resident's note. Continue hydration with IV fluids at 100 mL/hour History of atrial fibrillation Continue home medication carvedilol 6.25 mg b.i.d. hold Eliquis for now given bloody effusion in the knee. History of CHF s/p stent in 2020 History of CAD History of ROBERT Continue home medication aspirin 81 mg, atorvastatin 40 mg, hold Lasix for now. Continue GDMT with Entresto, spironolactone, carvedilol She follows Dr. Catalan outpatient. CPAP at night Patient's current condition is guarded we will continue to follow patient in AM . Date of Service: Apr 26, 2025 Billing Provider: GARRET GUALLPA MD Common Visit Codes: [id number] INP/OBS CARE(HIGH) GARRET GUALLPA MD Apr 26, 2025 19:23
[2025-04-26] MEDS ORDERED: albuterol 2.5 MG/3 ML nebule NEB PRN (20:40)
[2025-04-26] MEDS: ipratropium 0.5 MG/2.5ML nebule IH SCH (20:52)
[2025-04-27] MEDS: VANCOMYCIN LEVEL IV ONE (03:35)
[2025-04-27 03:44] LABS: MEAN PLATELET VOLUME 8.2 FL (7.4-10.4); RED CELL DISTRIBUTION WIDTH 16.0 % (11.5-14.5)
[2025-04-27 03:55] LABS: CREATININE 0.57 MG/DL (0.40-0.90); TOTAL CARBON DIOXIDE 29.2 MMOL/L (24-32); eCRCL 79 ML/MIN; eGFR > 90 ML/MIN
[2025-04-27 06:00] VITALS: BP 116/62; PULSE 74; RESP 20; TEMP 97.7; O2SAT 98
[2025-04-27] MEDS: budesonide 0.5mg/2ml UD nebule IH SCH (07:57)
[2025-04-27 07:58] VITALS: PULSE 65; RESP 18; O2SAT 93
[2025-04-27 08:07] VITALS: PULSE 60; RESP 18
[2025-04-27] MEDS: duloxetine 30mg CAPSULE.DR PO SCH (08:38)
[2025-04-27 10:00] VITALS: BP 115/45; PULSE 67; RESP 18; TEMP 97.7; O2SAT 93
[2025-04-27] MEDS: ondansetron/PF 4mg/2ml inj IV PRN (10:41)
[2025-04-27] MEDS: VANCOMYCIN 750MG IV in NS 250 ML IV SCH (12:31)
[2025-04-27 13:49] VITALS: PULSE 66; RESP 18; O2SAT 99
[2025-04-27 13:50] VITALS: PULSE 65; RESP 18
--- NOTE | 2025-04-27 17:21 | DISCHARGE SUMMARY ---
Discharge Summary Providers to CC ~ Discharge Summary Admission Diagnosis: Left knee pain Hospital Course DATE OF ADMISSION: April 25 2025 DATE OF DISCHARGE:April 27 2025 CBC testing done on April 27, 2025 WBC 9.1 hemoglobin 10.9 hematocrit 33.0 platelet count 355. Sed rate 29. Serum chemistry done on April 27, 2025 sodium 141 potassium 4.0 creatinine 0.57 GFR greater than 90. Hemoglobin A1c 6.3, normal liver enzymes procalcitonin 0.05 lactic acid 1.3. Blood cultures negative. CT LOWER EXTREMITY-Findings/Impression: Significant beam hardening artifact from the left total knee arthroplasty which limits evaluation. There is no evidence of an acute fracture, dislocation, blastic, or lytic lesions. Small joint effusion with prepatellar edema. KNEE, COMP 4 VW MINNo radiographic evidence for acute fracture or dislocation. Left knee arthroplasty in anatomic alignment. Small to moderate suprapatellar effusion. Enthesopathy at quadriceps insertion upon the patella. Osteopenia. Discharge Diagnosis\\Comment: Acute knee pain and tenderness secondary to trauma Small to Moderate Bloody prepatellar effusion Ruled out septic arthritis History of atrial fibrillation History of CHF s/p stent in 2020 History of CAD History of ROBERT Insomnia Type 2 diabetes Chronic neuropathy or chronic pain Long-term anticoagulation use Operations\\Procedures: None Consultants: Dr Aleman Complications: None Condition on DC: Stable Continued Medications: Apixaban (Eliquis) 5 Mg Tablet 1 TAB PO Q12H for 30 Days, #60 TAB Aspirin (Ecotrin*) 81 Mg Tablet. 81 TAB PO DAILY for 30 Days, #30 TAB Atorvastatin Calcium (Atorvastatin Calcium) 40 Mg Tablet 1 TAB PO DAILY Calcium Carbonate* (Oscal*) 500 Mg Tablet 2 TAB PO DAILY, TAB Carvedilol (Carvedilol) 6.25 Mg Tablet 1 TAB PO BID Duloxetine HCl (Cymbalta) 60 Mg Capsule.dr 1 CAP PO DAILY for 30 Days, #30 CAP 0 Refills Fexofenadine Hcl (Nakia Allergy) 60 Mg Tablet 3 TAB PO DAILY for allergy symptoms for 30 Days, #60 TAB 0 Refills Fluconazole (Fluconazole) 200 Mg Tablet 1 TAB PO Q7D Fluticasone/Umeclidin/Vilanter (Trelegy Ellipta 200-62.5-25) 200-62.5 Blst.w.dev 1 PUFFS INH DAILY for 30 Days, #60 EA 0 Refills Icosapent Ethyl (Vascepa) 1 Gram Capsule 2 CAP PO Q12H for 30 Days, #120 CAP 0 Refills Liraglutide (Victoza) 0.6 Mg/0.1 Ml (18 Mg/3 Ml) Pen.injctr 1.2 MG SUBCUT DAILY for 30 Days, #6 ML 0 Refills Magnesium Oxide (Magnesium) 250 Mg Tablet 2 TAB PO DAILY for 30 Days, #30 TAB 0 Refills Melatonin (Melatonin) 10 Mg Tablet 1 TAB PO HS for sleep for 30 Days, #30 TAB 0 Refills Sacubitril/Valsartan (Entresto 24 mg-26 mg Tablet) 24 Mg-26 Mg Tablet 1 TAB PO BID for 30 Days, #60 TAB 0 Refills Spironolactone (Spironolactone) 100 Mg Tablet 2.5 TAB PO DAILY for 30 Days, #30 TAB 0 Refills Tramadol HCl (Tramadol HCl) 50 Mg Tablet 1 TAB PO Q12H PRN PRN for pain for 30 Days, #60 TAB Zolpidem Tartrate (Zolpidem Tartrate) 6.25 Mg Tab.mphase 1 TAB PO HSPRN PRN for sleep for 30 Days, #30 TAB 0 Refills Discharge Summary: As per admitting provider's history and physical note" This is a 79-year-old female with a history of atrial fibrillation, CAD, hypertension, hyperlipidemia, COPD, emphysema, diabetes, arthritis presents to the ER with a chief complaint of pain and tenderness in the left knee. Patient endorses that she had a ground level fall landed on her left knee on Thursday about four days ago. She is on a blood thinner for her AFib and has propensity to bleed easily. Patient states that she had very significant swelling that improved progressively. Also the swelling improved she had warmth, tenderness to touch and redness around the left knee. Patient also has pain while she bends her knee. 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 She denies any fever, chills, difficulty walking or gait abnormalities." During hospitalization patient was treated for Acute knee pain and tenderness secondary to trauma Small to Moderate Bloody prepatellar effusion Rule out septic arthritis Knee x-ray shows No radiographic evidence for acute fracture or dislocation. Left knee arthroplasty in anatomic alignment. Small to moderate suprapatellar effusion. Enthesopathy at quadriceps insertion upon the patella. Osteopenia. continue on IV vancomycin and Rocephin. Dr. Aleman was consulted who recommended inpatient admission, arthrocentesis and culture of synovial fluid. Arthrocentesis was done which got very minimal blood with no purulent drainage. Fluid was sent for analysis as per resident's note. Continued hydration with IV fluids at 100 mL/hour Dr. Aleman evaluated the patient today and he does not feel that patient has septic osteoarthritis of left knee and it goes more in favor of hematoma. He do not want patient to go on any antibiotics . Patient takes pain meds from her primary care physician and we will follow with PCP History of atrial fibrillation Continue home medication carvedilol 6.25 mg b.i.d. held Eliquis for now given bloody effusion in the knee. History of CHF s/p stent in 2020 History of CAD History of ROBERT Continue home medication aspirin 81 mg, atorvastatin 40 mg, hold Lasix for now. Continue GDMT with Entresto, spironolactone, carvedilol She follows Dr. Catalan outpatient. CPAP at night Patient's clinical condition was stable throughout the hospitalization. She was ambulating. She has been afebrile and getting discharged home in stable condition. Patient is seen and examined on the day of discharge discharge instructions provided to the patient. All questions and concerns answered to the best of my professional medical knowledge.Patient needs follow-up with primary care physician in outpatient setting in 1-2 week. Please read side effects of all your medication patient is taking multiple medications which can increase her risk for falls and fractures. Further management of diabetes as per PCP patient is on Victoza currently with a hemoglobin A1c of 6.3. Please provide fall precautions documents. General-patient not in any acute distress, alert awake oriented, chronically ill-appearing , obese , looks comfortable. HEENT-atraumatic normocephalic, neck supple without elevated JVD, no thyromegaly or carotid bruit. No lymphadenopathy bilaterally. Eyes-no icterus or pallor seen in eyes Chest-clear to auscultation bilaterally, breathing nonlabored no tachypnea, no wheezing, no crepitation, no crackles. Heart-S1-S2 normal, regular heart rate no murmur Abdomen bowel sounds positive on auscultation, soft nondistended nontender no guarding, no rigidity Skin no active skin rash Neurology-grossly intact, nonfocal alert awake oriented Extremity- signs of small joint effusion and hematoma present over left knee, no pedal edema able to move all 4 extremities, walking with the help of cane Psychiatry - patient is not confused or agitated cooperated during physical examination *Problems/Diagnosis: (1) Hematoma of right lower leg Status: Acute Total Time Spent on D/C: > 30 Minutes Date of Service: Apr 27, 2025 Billing Provider: GARRET GUALLPA MD Common Visit Codes: 69993-KEW/OBS DISCH DAY >30min GARRET GUALLPA MD Apr 27, 2025 17:13
[2025-04-28] MEDS ORDERED: VANCOMYCIN LEVEL IV ONE (11:30)
== END 2025-04-27 14:30 | disposition home or self-care (01) | DRG 605 ==
LOC: ER 16:35 → ED HOLD 22:25 → EDBEDREQ 23:39 → SUR 3N 04-26 00:40
PROVIDERS: ADMIT Internal Medicine; ATTEND Internal Medicine
PROC: 0S9D3ZZ Drainage of Left Knee Joint, Percutaneous Approach (ICD-10-PCS; principal; 2025-04-25)
PROC: BQ2S1ZZ Computerized Tomography (CT Scan) of Left Lower Extremity using Low Osmolar Contrast (ICD-10-PCS; 2025-04-26)
DX: S80.02XA Contusion of left knee, initial encounter (principal); I48.91 Unspecified atrial fibrillation; I11.0 Hypertensive heart disease with heart failure; I25.10 Atherosclerotic heart disease of native coronary artery without angina pectoris; J44.9 Chronic obstructive pulmonary disease, unspecified; M17.12 Unilateral primary osteoarthritis, left knee; G47.33 Obstructive sleep apnea (adult) (pediatric); E78.00 Pure hypercholesterolemia, unspecified; J43.9 Emphysema, unspecified; M76.892 Other specified enthesopathies of left lower limb, excluding foot; E11.9 Type 2 diabetes mellitus without complications; M25.462 Effusion, left knee; W18.39XA Other fall on same level, initial encounter; I50.9 Heart failure, unspecified; Z88.0 Allergy status to penicillin; Z88.2 Allergy status to sulfonamides; Z88.5 Allergy status to narcotic agent; Z88.8 Allergy status to other drugs, medicaments and biological substances; Z79.01 Long term (current) use of anticoagulants; Z79.899 Other long term (current) drug therapy; Z79.82 Long term (current) use of aspirin; I25.2 Old myocardial infarction; Z90.49 Acquired absence of other specified parts of digestive tract; Y93.89 Activity, other specified; Y92.89 Other specified places as the place of occurrence of the external cause; Y99.8 Other external cause status
CPT/HCPCS: 20610; 36415; 73564; 73701; 80048; 80053; 80061; 80202; 83036; 83605; 83735; 83880; 84145; 84484; 85025; 85610; 85651; 85730; 86140; 87040; 87081; 94640; 94760; 97161; 97530; 99285; A4615; G0378; J0696; J1644; J2405; J3373; J3375; J7030; J7050; Q9967

== ENCOUNTER 2025-05-17 13:30 | Emergency (ER) | payer MEDICARE, OTHER ==
[~2025-05-17] VITALS: Ht 170.2 cm; Wt 101.0 kg
[~2025-05-17 13:30] MED LIST changes: +ALBU2.5V7 NEB; +CARV3.122 PO; -CARV6.253 PO; +CIPR-259 PO; -FEXO-25 PO; -FLUT1BLS16 INH; -FURO-150 PO; +IPRA3AMP31 NEB; +LACT1CAP74 PO; -LEVO-65 PO; +NYST30CR28 TOP; -PANT-47 PO; -POTA-207 PO; +PRED10TA23 PO; +SPIR100T5 PO; +TRAM50TA2 PO
--- NOTE | 2025-05-17 13:45 | ELECTROCARDIOGRAPH REPORT ---
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 Zay Barriga Please click the below link to view image of tracing.
--- NOTE | 2025-05-17 14:05 | Physician Documentation ---
History of Present Illness General Chief Complaint: Shortness of Breath Stated Complaint: SOB Time Seen by MD: 13:56 Primary Medical Doctor: Dr. Caro, PCP. 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 Yesterday the patient was doing well. This morning, she woke up feeling poorly and noted that her oxygen saturation was in the mid 80s on room air. Normally, she only uses oxygen at night with her BiPAP, at 2 L. Since her discharge she has been using 3 L at night. She is taking azithromycin and prednisone (10 mg TID) since discharge. Medication Reconciliation Allergies: Coded Allergies: Penicillins (Unverified Allergy, Intermediate, HIVES, 05/17/25) Sulfa (Sulfonamide Antibiotics) (Unverified Allergy, Intermediate, HIVES, 05/17/25) clindamycin (Verified Allergy, Intermediate, hot mouth, 05/17/25) droperidol (Unverified Allergy, Intermediate, MOOD CHANGE, 05/17/25) morphine (Verified Allergy, Intermediate, HIVES, 05/17/25) NSAIDS (Non-Steroidal Anti-Inflamma (Verified Allergy, Unknown, 05/17/25) Uncoded Allergies: NSAID (Allergy, Mild, BLEEDING- PT ON BLOOD THINNERS, 04/19/24) Scheduled Albuterol Sulfate Nebs* (Proventil Nebs*), 1 VIAL NEB Q4H, (Reported) Apixaban (Eliquis), 1 TAB PO Q12H, (Reported) Aspirin (Ecotrin*), 1 TAB PO DAILY, (Reported) Atorvastatin Calcium (Atorvastatin Calcium), 1 TAB PO DAILY, (Reported) Calcium Carbonate* (Oscal*), 2 TAB PO DAILY, (Reported) Carvedilol (Coreg), 1 TAB PO DAILY, (Reported) Ciprofloxacin HCl (Cipro), 1 TAB PO Q12H, (Reported) Duloxetine HCl (Cymbalta), 1 CAP PO DAILY, (Reported) Ipratropium/Albuterol Sulfate (Duoneb 2.5-0.5 Mg/3 Ml Soln), 1 VIAL NEB Q12H Lactobacillus Rhamnosus GG (Culturelle), 1 CAP PO DAILY, (Reported) Liraglutide (Victoza), 1.2 MG SUBCUT DAILY, (Reported) Magnesium Oxide (Magnesium), 2 TAB PO DAILY, (Reported) Melatonin (Melatonin), 1 TAB PO HS, (Reported) Nystatin/Triamcin Cream* (Mycolog Cream*), 1 APPLIC TOP Q12H, (Reported) Sacubitril/Valsartan (Entresto 24 mg-26 mg Tablet), 1 TAB PO BID, (Reported) Spironolactone (Spironolactone), 2.5 TAB PO DAILY, (Reported) Scheduled PRN Prednisone (Prednisone), for Per Protocol, (Reported) Tramadol HCl (Tramadol HCl), 1 TAB PO Q12H PRN PRN for pain, (Reported) Zolpidem Tartrate (Zolpidem Tartrate), 1 TAB PO HSPRN PRN for sleep, (Reported) Discontinued Medications Albuterol Sulfate (Albuterol Sulfate), 1 VIAL NEB Q4HPRN PRN for SOB or wheezing Discontinued Reason: patient no longer taking Carvedilol (Carvedilol), 1 TAB PO BID, (Reported) Discontinued Reason: Prescription changed Carvedilol (Carvedilol), 1 TAB PO Q12H Discontinued Reason: patient no longer taking Ciprofloxacin HCl (Cipro), 1 TAB PO Q12H Discontinued Reason: patient no longer taking Fexofenadine Hcl (Nakia Allergy), 3 TAB PO DAILY, (Reported) Discontinued Reason: completed med therapy Fluconazole (Fluconazole), 1 TAB PO Q7D, (Reported) Discontinued Reason: patient no longer taking Fluticasone/Umeclidin/Vilanter (Trelegy Ellipta 200-62.5-25), 1 PUFFS INH DAILY, (Reported) Icosapent Ethyl (Vascepa), 2 CAP PO Q12H, (Reported) Discontinued Reason: patient no longer taking Lactobacillus Rhamnosus GG (Culturelle), 1 CAP PO BID Discontinued Reason: patient no longer taking Nystatin (Nystatin), 1 APPLIC TOP Q8H Discontinued Reason: patient no longer taking Prednisone (Prednisone), 0 PO DAILY Discontinued Reason: patient no longer taking Past Medical History Past Medical History: Atrial Fibrillation, Coronary Artery Disease, High Cholesterol, Hypertension, Myocardial Infarction, COPD, Emphysema, Pneumonia, GI Bleed, Pancreatitis, Diabetes, Arthritis Past Surgical History: angioplasty, cholecystectomy, orthopedic surgeries Alcohol Use: None Drug Use: none Lives with: Spouse Lives In: Home Occupation: retired Review of Systems ROS Constitutional: Denies chills, fatigue, fever, weight gain or weight loss. HEENT: Denies hearing loss, sinus pressure or visual changes. Respiratory: Shortness of breath Cardiovascular: Denies chest pain, pain while walking (claudication), edema or palpitations. Gastrointestinal: Denies abdominal pain, blood in stool, constipation, diarrhea, heartburn, loss of appetite, nausea or vomiting. Genitourinary: Denies painful urination (dysuria), excessive amount of urine (polyuria) or urinary frequency. Metabolic/Endocrine: Denies cold intolerance, heat intolerance, excessive thirst (polydipsia) or excessive hunger (polyphagia). Neurological: Denies dizziness, extremity numbness, extremity weakness, headaches, seizures or tremors. Psychiatric: Denies anxiety or depression. Integumentary: Denies breast discharge, breast lump, hives, mole change(s), rash or skin lesion. Musculoskeletal: Denies back pain, joint pain, joint swelling or neck pain. Hematologic: Denies easily bleeding, easily bruises, lymphedema or issues with blood clots. Immunologic: Denies food allergies or seasonal allergies. Physical Exam Physical Exam Vital Signs: Temperature: 98.2, Source: Oral, Heart Rate: 68, Respiratory Rate: 15, BP: 113/49, Pulse Oximetry: 93, Weight: 101.000 Oxygen Flow Rate: 2.0 Physical Exam Physical Exam Vitals and nursing note reviewed. Constitutional: General: Patient is awake, alert, oriented x 4 in no acute distress and well appearing. Speech is clear and lucid. Appearance: Normal appearance. Patient is not ill-appearing, toxic-appearing or diaphoretic. HENT: Head: Normocephalic and atraumatic. Mouth/Throat: Mouth: Mucous membranes are moist. Pharynx: Oropharynx is clear. Eyes: General: No scleral icterus. Extraocular Movements: Extraocular movements intact. Pupils: Pupils are equal, round, and reactive to light. Neck: Supple, no Kernig or Brudzinski sign. Cardiovascular: Rate and Rhythm: Normal rate and regular rhythm. Heart sounds: No murmur heard. Pulmonary: Effort: No respiratory distress. Breath sounds: Rales bilaterally. Abdominal: General: There is no distension. Palpations: There is no fluid wave, hepatomegaly or mass. Tenderness: There is no abdominal tenderness. There is no guarding. Musculoskeletal: General: No swelling or deformity. Skin: Coloration: Skin is not jaundiced. Findings: No erythema or rash. Neurological: Mental Status: Patient is alert. Progress Results/Orders Results/Orders Vital Signs 05/17/25 05/17/25 05/17/25 05/17/25 13:54 14:22 16:27 16:28 Temp 98.2 Pulse 68 68 68 Resp 15 15 21 18 B/P (MAP) 113/49 113/49 (70) 129/51 (77) Pulse Ox 93 94 92 O2 Flow Rate 2.0 2.0 2.0 05/17/25 05/17/25 05/17/25 05/17/25 18:32 20:23 20:38 20:39 Temp 98.0 Pulse 73 99 77 Resp 18 18 22 B/P (MAP) 122/62 (82) 124/62 (82) Pulse Ox 98 94 90 O2 Flow Rate 2.0 05/17/25 05/17/25 20:52 22:05 Pulse 63 Resp 18 B/P (MAP) 119/81 (94) Pulse Ox 96 Laboratory Tests Test 05/17/25 13:47 05/17/25 16:10 White Blood Count 19.3 H Red Blood Count 4.80 Hemoglobin 13.1 Hematocrit 40.6 Mean Corpuscular Volume 84.6 Mean Corpuscular Hemoglobin 27.3 Mean Corpuscular Hemoglobin Concent 32.3 L Red Cell Distribution Width 15.7 H Platelet Count 490 H Mean Platelet Volume 8.4 Neutrophils (%) (Auto) 77.6 H Lymphocytes (%) (Auto) 13.7 L Monocytes (%) (Auto) 7.6 Eosinophils (%) (Auto) 0.8 Basophils (%) (Auto) 0.3 Neutrophils # (Auto) 14.9 H Lymphocytes # (Auto) 2.6 Monocytes # (Auto) 1.5 H Eosinophils # (Auto) 0.2 Basophils # (Auto) 0.1 CBC Comment Prothrombin Time 10.7 INR International Normalized Ratio 1.0 Coagulation Comments Sodium Level 139 Potassium Level 4.0 Chloride Level 100 Carbon Dioxide Level 34.5 H Anion Gap 5 L Blood Urea Nitrogen 23 H Creatinine 0.76 Estimated GFR/1.73 m2 74 BUN/Creatinine Ratio 30.3 H Glucose Level 168 H Lactic Acid Level 2.8 H 2.0 Calcium Level 8.7 Magnesium Level 2.0 Total Bilirubin 0.4 Aspartate Amino Transf (AST/SGOT) 4 L Alanine Aminotransferase (ALT/SGPT) 25 Alkaline Phosphatase 49 C-Reactive Protein 0.38 Pro-B-Type Natriuretic Peptide 631 H Total Protein 6.4 Albumin 2.9 L Globulin 3.5 Albumin/Globulin Ratio 0.8 L Procalcitonin < 0.05 Chemistry Comments Medical Decision Making Findings EKG medically necessary in the evaluation of shortness of breath and interpreted by me at the time of patient evaluation. Rhythm is sinus rhythm with a rate of 68. Extensive old anterior infarct Impression: Abnormal EKG. Differential Diagnosis I took over care of this patient from previous ED physician. This is a 79-year-old female who was recently admitted and discharged from our hospital two days ago. Her discharge diagnosis was COPD exacerbation and pneumonia. She was discharged on azithromycin and prednisone which she has been taking. Today she felt a little bit short of breath so she return to the ED. her workup here indicates a further elevated WBC count of 19.3 however the patient has been on prednisone and this is expected. Her chest x-ray is grossly unchanged from the one she had several days ago. Patient did have a slightly elevated lactic acid level of 2.8 however on repeat it had normalized to 2.0 without any interventions. Patient is maintaining her airway and O2 saturation is fine. She satting above 90 % both at rest and with ambulation. I offered the patient readmission to the hospital but she declined. She states that she feels fine an d would prefer to continue with her medications and follow up with her primary care physician. I think this is prudent and reasonable. Patient will be discharged home with instructions to follow up with PCP. Return to the ED with any acutely worsening symptoms. Departure Disposition: 01 HOME / SELF CARE / HOMELESS Impression: Primary Impression: COPD exacerbation Additional Impression: Pneumonia Condition: Stable Referrals: NO PRIMARY CARE PROVIDER (PCP) Comments I offered the patient readmission to the hospital but she declined. She states that she feels fine and would prefer to continue with her medications and follow up with her primary care physician. Signature Scribe Signature: 1 Attestation: 1 UDAY MARIE MD May 17, 2025 14:05 HILARY NEVAREZ MD May 17, 2025 22:24
[2025-05-17 14:43] LABS: MEAN PLATELET VOLUME 8.4 FL (7.4-10.4)
[2025-05-17 14:44] LABS: RED CELL DISTRIBUTION WIDTH 15.7 % (11.5-14.5)
--- NOTE | 2025-05-17 14:49 | RADIOLOGY REPORT ---
CHEST RADIOGRAPH Indication: Shortness of breath Technique: Single frontal view of the chest was obtained COMPARISON: CT CTA CHEST PE W/ IV CONTRAST on DOS: 05/12/25, DI CHEST,SINGLE VIEW on DOS: 05/11/25, CT C T CHEST on DOS: 04/19/24, DI CHEST,SINGLE VIEW on DOS: 04/19/24, CTA CHEST on DOS: 03/29/22 FINDINGS: Lines and Tubes: None Lungs: Mild congestion Pleura: Small left pleural effusion No pneumothorax. Cardiomediastinal contours: Cardiomegaly Bones: Unremarkable IMPRESSION: Mild fluid overload
[2025-05-17 14:51] LABS: INR 1.0 INR
[2025-05-17 15:07] LABS: CREATININE 0.76 MG/DL (0.40-0.90); PRO BRAIN NATRIURETIC PEPTIDE 631 PG/ML (0-450); TOTAL CARBON DIOXIDE 34.5 MMOL/L (24-32); eCRCL 59 ML/MIN; eGFR 74 ML/MIN
[2025-05-17] MEDS ORDERED: LACT1CAP74 PO (19:46)
[2025-05-17] MEDS ORDERED: CARV3.12 PO (19:46)
[2025-05-17] MEDS ORDERED: NYST30CR46 TOP (19:46)
[2025-05-17] MEDS ORDERED: ALB0.5UD NEB (19:51)
[2025-05-17] MEDS ORDERED: CIPR-259 PO (19:51)
[2025-05-17] MEDS ORDERED: PRED10TA (19:51)
[2025-05-17 20:23] VITALS: TEMP 98
[2025-05-17 22:39] VITALS: BP 119/81; PULSE 67; RESP 18; O2SAT 95
== END 2025-05-17 22:43 | disposition home or self-care (01) ==
LOC: ER 13:31
DX: J44.1 Chronic obstructive pulmonary disease with (acute) exacerbation (principal); I25.10 Atherosclerotic heart disease of native coronary artery without angina pectoris; E78.00 Pure hypercholesterolemia, unspecified; E11.9 Type 2 diabetes mellitus without complications; I48.91 Unspecified atrial fibrillation; I25.2 Old myocardial infarction; G47.33 Obstructive sleep apnea (adult) (pediatric); I11.0 Hypertensive heart disease with heart failure; I50.22 Chronic systolic (congestive) heart failure; M19.90 Unspecified osteoarthritis, unspecified site; Z79.01 Long term (current) use of anticoagulants; Z85.3 Personal history of malignant neoplasm of breast; Z88.0 Allergy status to penicillin; Z88.2 Allergy status to sulfonamides; Z88.1 Allergy status to other antibiotic agents; Z88.5 Allergy status to narcotic agent; Z90.49 Acquired absence of other specified parts of digestive tract; Z79.899 Other long term (current) drug therapy; Z79.82 Long term (current) use of aspirin
CPT/HCPCS: 36415; 71045; 80053; 83605; 83735; 83880; 84145; 85025; 85610; 86140; 93005; 99285